=== PATIENT | male | born 1995 | race Caucasian/White ===

== ENCOUNTER 2018-04-06 19:37 | Emergency (ER) | payer BC ==
[2018-04-06 19:59] VITALS: BP 149/70
--- NOTE | 2018-04-06 20:05 | UC ---
Skin Complaint HPI - HPI Summary HPI Summary: Pt c/o circular mildly itchy erythematous rash on posterior distal thigh. Pt also c/o generalized malaise, fever, chills X 3 days. - History of Current Complaint Chief Complaint: UCGeneralIllness Time Seen by Provider: 04/06/18 20:01 Stated Complaint: SKIN COMPLAINT Hx Obtained From: Patient Onset/Duration: Sudden Onset, Lasting Days, Still Present, Resolved Timing: Constant Onset Severity: Mild Current Severity: Mild Pain Intensity: 6 Location: Discrete Character: Pruritus, Redness Aggravating Factor(s): Nothing Alleviating Factor(s): Unknown Associated Signs & Symptoms: Positive: Fever, Chills, Rash - Allergy/Home Medications Allergies/Adverse Reactions: Allergies Allergy/AdvReac Type Severity Reaction Status Date / Time No Known Allergies Allergy Verified 04/06/18 19:50 Home Medications: Home Medications D-Methorphan/PE/Acetaminophen [Day Time Cold-Flu Relief Liq] 1 liq PO PRN [History] Naproxen Sodium [Aleve] 220 mg PO PRN 04/06/18 [History] Review of Systems Constitutional: Fever, Chills, Fatigue Skin: Rash Eyes: Negative ENT: Negative Respiratory: Negative Cardiovascular: Negative Gastrointestinal: Negative Genitourinary: Negative Motor: Negative Neurovascular: Negative Musculoskeletal: Negative Neurological: Negative Psychological: Negative Is Patient Immunocompromised?: No All Other Systems Reviewed And Are Negative: Yes PMH/Surg Hx/FS Hx/Imm Hx Previously Healthy: Yes - Surgical History Surgical History: None - Family History Known Family History: Positive: Cardiac Disease - Social History Occupation: Unemployed Lives: With Family Alcohol Use: Daily Substance Use Type: None Smoking Status (MU): Never Smoked Tobacco Have You Smoked in the Last Year: No Physical Exam Triage Information Reviewed: Yes Appearance: Well-Appearing Vital Signs: Initial Vital Signs Temp 98.1 F 04/06/18 19:52 Pulse 78 04/06/18 19:52 Resp 15 04/06/18 19:52 BP 149/70 04/06/18 19:52 Pulse Ox 98 04/06/18 19:52 Vital Signs Reviewed: Yes Eye Exam: Normal ENT Exam: Normal Dental Exam: Normal Neck exam: Normal Respiratory Exam: Normal Cardiovascular Exam: Normal Musculoskeletal Exam: Normal Neurological Exam: Normal Psychological Exam: Normal Skin: Positive: rashes - 3cm cicular erythematous, with flaky dry skin, with erythematous center and raised tiny pin prick areas Diagnostics - Laboratory Diagnostic Studies Completed/Ordered: rapid flu: negative Course/Dx - Course Course Of Treatment: Pt denies ever being bit by a tick. - Differential Diagnoses - Skin Complaint Differential Diagnoses: Tick Born Illness, Tinea - Diagnoses Provider Diagnoses: ringworm. viral syndrome Discharge - Sign-Out/Discharge Documenting (check all that apply): Patient Departure All imaging exams completed and their final reports reviewed: No Studies - Discharge Plan Condition: Stable Disposition: HOME Prescriptions: Terbinafine HCl [Antifungal] 15 gm TP Q12H 14 Days #1 tube Patient Education Materials: Viral Syndrome (ED), Skin Yeast Infection (ED) Referrals: Erasmo Fitch MD [Primary Care Provider] - If Needed - Billing Disposition and Condition Condition: STABLE Disposition: Home
== END 2018-04-06 20:55 | disposition home or self-care (01) ==
LOC: UCCORT 19:37
DX: B35.9 Dermatophytosis, unspecified (principal); B34.9 Viral infection, unspecified
CPT/HCPCS: 86618; 99202; G0463